=== PATIENT | male | born 1955 | race Caucasian/White ===

== ENCOUNTER → 2017-04-03 | Outpatient (CLI) | payer OTHER ==
[~2017-04-03] MED LIST: PREDNISONE10 MG PO
== END | disposition home or self-care (01) ==
LOC: TOM 13:14
DX: K57.30 Diverticulosis of large intestine without perforation or abscess without bleeding (principal)

== ENCOUNTER 2017-07-21 09:47 | Outpatient (CLI) | payer OTHER | END 2017-07-21 15:06 | disposition home or self-care (01) | LOC: SONOGRAMA 09:47 | DX: R10.9 Unspecified abdominal pain (principal); K57.30 Diverticulosis of large intestine without perforation or abscess without bleeding ==

== ENCOUNTER 2017-09-01 11:58 | Outpatient (CLI) | payer OTHER | END 2017-09-01 17:00 | disposition home or self-care (01) | LOC: MRI 11:58 | DX: M75.42 Impingement syndrome of left shoulder (principal) | CPT/HCPCS: 73221 ==

== ENCOUNTER 2018-02-09 14:14 | Outpatient (CLI) | payer OTHER | END 2018-02-09 14:33 | disposition home or self-care (01) | LOC: MRI 14:14 | DX: D48.1 Neoplasm of uncertain behavior of connective and other soft tissue (principal) | CPT/HCPCS: 73222 ==

== ENCOUNTER 2018-03-30 09:56 | Outpatient (CLI) | payer OTHER | END 2018-03-30 10:10 | disposition home or self-care (01) | LOC: RAD 09:56 | DX: M25.511 Pain in right shoulder (principal); N20.0 Calculus of kidney; N40.1 Benign prostatic hyperplasia with lower urinary tract symptoms | CPT/HCPCS: 73221 ==

== ENCOUNTER 2018-08-04 11:45 | Emergency (ER) | payer OTHER ==
[~2018-08-04] VITALS: Ht 172.7 cm; Wt 83.9 kg
[2018-08-04] MEDS ORDERED: SKELAXIN800 MG PO (15:28)
[2018-08-04] MEDS ORDERED: KETO10TA2 PO (15:28)
== END 2018-08-04 15:54 | disposition home or self-care (01) ==
LOC: ER 11:45
DX: M94.0 Chondrocostal junction syndrome [Tietze] (principal)

== ENCOUNTER 2019-08-15 11:02 | Outpatient (CLI) | payer OTHER ==
[~2019-08-15 11:02] MED LIST changes: +KETO10TA2 PO; +SKELAXIN800 MG PO
== END 2019-08-15 11:09 | disposition home or self-care (01) ==
LOC: TOM 11:02
PROVIDERS: ATTEND Internal Medicine Gastroenterology
DX: K57.30 Diverticulosis of large intestine without perforation or abscess without bleeding (principal); R10.32 Left lower quadrant pain

== ENCOUNTER 2020-11-12 10:39 | Emergency (ER) | payer OTHER ==
[~2020-11-12] VITALS: Ht 172.7 cm; Wt 83.9 kg
[2020-11-12] MEDS ORDERED: PRILOSEC OTC20 MG (10:58)
[2020-11-12] MEDS ORDERED: LEVSIN/SL0.125 MG SL (15:48)
[2020-11-12] MEDS ORDERED: PEPCID20 MG PO (15:48)
[2020-11-12] MEDS ORDERED: CARAFATE1 GM PO (15:48)
== END 2020-11-12 15:58 | disposition home or self-care (01) ==
LOC: ER 10:39
DX: K29.00 Acute gastritis without bleeding (principal); R12 Heartburn; R10.13 Epigastric pain; N28.1 Cyst of kidney, acquired

== ENCOUNTER 2021-04-26 09:26 | Outpatient (CLI) | payer OTHER ==
[~2021-04-26 09:26] MED LIST changes: +CARAFATE1 GM PO; +LEVSIN/SL0.125 MG SL; +PEPCID20 MG PO; +PRILOSEC OTC20 MG
== END 2021-04-29 16:06 | disposition home or self-care (01) ==
LOC: TOM 09:26
PROVIDERS: ATTEND Otolaryngology Plastic Surgery within the Head & Neck
DX: R43.0 Anosmia (principal)

== ENCOUNTER → 2021-07-16 | Outpatient (CLI) | payer OTHER | END | disposition home or self-care (01) | LOC: MRI 10:19 | PROVIDERS: ATTEND Neuromusculoskeletal Medicine, Sports Medicine | DX: M25.562 Pain in left knee (principal); M17.0 Bilateral primary osteoarthritis of knee | CPT/HCPCS: 73721 ==

== ENCOUNTER → 2021-08-23 | Outpatient (CLI) | payer OTHER | END | disposition home or self-care (01) | LOC: TOM 10:07 | PROVIDERS: ATTEND Internal Medicine Gastroenterology | DX: R10.13 Epigastric pain (principal) ==

== ENCOUNTER 2021-09-27 12:51 | Emergency (ER) | payer OTHER ==
[~2021-09-27] VITALS: Ht 172.7 cm; Wt 81.6 kg
[2021-09-27] MEDS ORDERED: MOTRIN IB200 M1 PO (13:27)
[2021-09-27] MEDS ORDERED: NORFLEX100MG PO (16:52)
[2021-09-27] MEDS ORDERED: DICLOFENAC SODI75 MG PO (16:52)
== END 2021-09-27 17:20 | disposition home or self-care (01) ==
LOC: ER 12:51
DX: R10.31 Right lower quadrant pain (principal); K57.30 Diverticulosis of large intestine without perforation or abscess without bleeding; N20.0 Calculus of kidney

== ENCOUNTER 2021-10-14 09:24 | Outpatient (CLI) | payer OTHER ==
[~2021-10-14 09:24] MED LIST changes: +DICLOFENAC SODI75 MG PO; +MOTRIN IB200 M1 PO; +NORFLEX100MG PO
== END 2021-10-14 09:40 | disposition home or self-care (01) ==
LOC: MRI 09:24
DX: M17.0 Bilateral primary osteoarthritis of knee (principal)

== ENCOUNTER → 2021-10-21 | Outpatient (CLI) | payer OTHER | END | disposition home or self-care (01) | LOC: MRI 11:15 | PROVIDERS: ATTEND Radiology Diagnostic Radiology | DX: R10.30 Lower abdominal pain, unspecified (principal) | CPT/HCPCS: 72195 ==

== ENCOUNTER 2022-01-28 06:00 | Day surgery (SDC) | payer OTHER ==
[~2022-01-28] VITALS: Ht 172.7 cm; Wt 81.6 kg
[~2022-01-28 06:00] MED LIST changes: +OMEPRAZOLE-BIC1 EAC1 PO
== END 2022-01-28 15:50 | disposition home or self-care (01) ==
LOC: CIR.AMB 06:00
PROVIDERS: ATTEND Specialist
DX: K40.90 Unilateral inguinal hernia, without obstruction or gangrene, not specified as recurrent (principal); Z20.822 Contact with and (suspected) exposure to COVID-19; Z86.16 Personal history of COVID-19
CPT/HCPCS: 49505; C1781

== ENCOUNTER 2022-07-15 12:36 | Outpatient (CLI) | payer OTHER | END 2022-07-15 15:23 | disposition home or self-care (01) | LOC: SONOGRAMA 12:36 | PROVIDERS: ATTEND Internal Medicine Gastroenterology | DX: K21.9 Gastro-esophageal reflux disease without esophagitis (principal); K30 Functional dyspepsia; Z86.010 Personal history of colon polyps; K57.30 Diverticulosis of large intestine without perforation or abscess without bleeding ==

== ENCOUNTER 2024-06-06 07:34 | Outpatient (CLI) | payer OTHER | END 2024-06-06 07:39 | disposition home or self-care (01) | LOC: TOM 07:34 | PROVIDERS: ATTEND Internal Medicine Gastroenterology | DX: R10.11 Right upper quadrant pain (principal); R10.13 Epigastric pain; B70.0 Diphyllobothriasis ==

== ENCOUNTER 2024-06-07 19:30 | Inpatient (IN) | payer OTHER ==
[~2024-06-07] VITALS: Ht 172.7 cm; Wt 81.6 kg
[2024-06-07] MEDS ORDERED: PIPERACILLIN/TAZOBACTAM SODIUM 3.375 GM VIAL IV ONE ×2 (20:45→20:49)
[2024-06-07] MEDS ORDERED: KETOROLAC TROMETHAMINE 30 MG VIAL IV ONE (20:45)
[2024-06-07] MEDS ORDERED: KETOROLAC TROMETHAMINE 30 MG VIAL ONE (20:49)
[2024-06-07 21:18] LABS: HEMATOCRIT 43.7 % (39.0-48.0); HEMOGLOBIN 14.8 g/dL (13-16.00); MEAN CELL VOLUME 91.3 fL (80.0-100.00); MEAN CORPUSCULAR HEMOGLOBIN 30.8 pg (27.00-32.0); MEAN CORPUSCULAR HGB CONC 33.8 g/dl (32.0-36.0); PLATELET COUNT 288 K/uL (150-450); RED BLOOD COUNT 4.78 M/uL (4.00-6.00)
[2024-06-07 21:38] LABS: INR 1.17; PARTIAL THROMBOPLASTIN TIME 30.5 SECONDS (22.0-34.0); PROTHROMBIN TIME 12.6 SECONDS (9.0-11.5)
[2024-06-07 21:52] LABS: ALBUMIN 3.7 gm/dL (3.4-5.0); BILIRUBIN TOTAL 1.07 mg/dL (0.3-1.2); CREATININE SERUM 1.1 mg/dL (0.70-1.30); GFR 66.37; POTASSIUM 3.68 mEq/L (3.5-5.1); TOTAL PROTEIN 7.7 gm/dL (6.4-8.2)
[2024-06-07] MEDS ORDERED: 0.9 % SODIUM CHLORIDE 1,000 ML IV SCH (23:15)
[2024-06-07] MEDS ORDERED: CIPROFLOXACIN IN 5 % DEXTROSE 200 ML IV SCH (23:18)
[2024-06-07] MEDS ORDERED: ACETAMINOPHEN 500 MG GEL..CAP PO PRN (23:30)
[2024-06-07] MEDS ORDERED: MORPHINE SULFATE 4 MG/ML CARTRIDGE IV SCH (23:30)
[2024-06-07] MEDS ORDERED: HYOSCYAMINE SULFATE 0.125 MG TAB.SUBL PO ONE (23:30)
[2024-06-08] MEDS ORDERED: METRONIDAZOLE/SODIUM CHLORIDE 100 ML IV SCH (01:00)
[2024-06-08] MEDS ORDERED: HYOSCYAMINE SULFATE 0.125 MG TAB.SUBL ONE (03:22)
[2024-06-08] MEDS ORDERED: CIPROFLOXACIN IN 5 % DEXTROSE 400 MG/200 ML PIGGYBAG IV ONE (03:23)
[2024-06-08] MEDS ORDERED: METRONIDAZOLE/SODIUM CHLORIDE 500 MG/100 ML PIGGYBACK IV ONE (03:23)
[2024-06-08 04:14] VITALS: BP 118/70
[2024-06-08 07:39] VITALS: BP 116/66; O2SAT 97
[2024-06-08 08:38] LABS: URINE APPEARANCE Clear; URINE BILIRRUBIN Negative (NEGATIVE); URINE BLOOD Negative; URINE COLOR Dark Yellow; URINE GLUCOSE Negative (NEGATIVE); URINE LEUKOCYTE Negative; URINE NITRATE Negative; URINE PROTEIN Trace (NEGATIVE)
[2024-06-08 08:42] LABS: URINE BACTERIA 8.5 uL (0.0-1933); URINE EPITHELIAL CELLS 3.1 uL (0.0-38.8); URINE RBC 10.1 uL (0.0-20.8); URINE WBC 8.2 uL (0.0-23.2)
[2024-06-08 08:45] LABS: URINE CAST 0.29 uL (0.0-1.40); URINE KETONE 40 (NEGATIVE)
[2024-06-08] MEDS ORDERED: PREDNISONE 5 MG TABLET PO SCH (09:00)
[2024-06-08] MEDS ORDERED: PANTOPRAZOLE SODIUM 40 MG/VIAL VIAL IV SCH (09:00)
[2024-06-08] MEDS ORDERED: PIPERACILLIN/TAZOBACTAM SODIUM 3.375 GM VIAL IV ONE (13:42)
[2024-06-08] MEDS ORDERED: PIPERACILLIN/TAZOBACTAM SODIUM 3.375 GM in 0.9 % SODIUM CHLORIDE 100 ML IV SCH (14:00)
[2024-06-08 16:40] VITALS: BP 116/62; O2SAT 96
[2024-06-08] MEDS ORDERED: CIPROFLOXACIN IN 5 % DEXTROSE 200 ML IV SCH (17:00)
[2024-06-08 23:01] VITALS: BP 133/65
[2024-06-09 02:52] VITALS: BP 130/67; O2SAT 96
[2024-06-09 07:15] LABS: HEMATOCRIT 40.7 % (39.0-48.0); HEMOGLOBIN 13.6 g/dL (13-16.00); MEAN CELL VOLUME 92.2 fL (80.0-100.00); MEAN CORPUSCULAR HEMOGLOBIN 30.9 pg (27.00-32.0); MEAN CORPUSCULAR HGB CONC 33.5 g/dl (32.0-36.0); PLATELET COUNT 304 K/uL (150-450); RED BLOOD COUNT 4.41 M/uL (4.00-6.00); RED CELL DISTRIBUTION WIDTH 13.8 % (11.5-14.5)
[2024-06-09 07:57] LABS: BILIRUBIN TOTAL 0.62 mg/dL (0.3-1.2); CALCIUM 8.9 mg/dL (8.5-10.1); CREATININE SERUM 1.08 mg/dL (0.70-1.30); GFR 67.79; GLOBULINA 3.2 G/DL (2.4-3.5); PHOSPHOROUS 2.6 mg/dL (2.5-4.9); POTASSIUM 4.17 mEq/L (3.5-5.1); TOTAL PROTEIN 6.2 gm/dL (6.4-8.2)
[2024-06-09 08:09] VITALS: BP 113/66; O2SAT 95
[2024-06-09] MEDS ORDERED: PIPERACILLIN/TAZOBACTAM SODIUM 3.375 GM VIAL IV ONE (16:01)
[2024-06-09 17:38] VITALS: BP 120/68; O2SAT 100
[2024-06-10] VITALS: BP 154/86; O2SAT 97
[2024-06-10 10:43] VITALS: BP 119/63; O2SAT 98
[2024-06-10] MEDS ORDERED: CLONAZEPAM 0.5 MG TABLET PO PRN (12:00)
[2024-06-10 17:42] VITALS: BP 120/69
[2024-06-10 18:27] VITALS: BP 120/69
[2024-06-10] MEDS ORDERED: LACTOBACILLUS ACIDOPHILUS 1 CAP CAP PO SCH (21:16)
[2024-06-11 02:01] VITALS: BP 124/60; O2SAT 98
[2024-06-11 08:43] LABS: HEMATOCRIT 44.5 % (39.0-48.0); HEMOGLOBIN 15.1 g/dL (13-16.00); MEAN CELL VOLUME 91.5 fL (80.0-100.00); MEAN CORPUSCULAR HGB CONC 33.8 g/dl (32.0-36.0); PLATELET COUNT 399 K/uL (150-450); RED BLOOD COUNT 4.86 M/uL (4.00-6.00); RED CELL DISTRIBUTION WIDTH 13.6 % (11.5-14.5)
[2024-06-11 09:10] LABS: ALBUMIN 3.3 gm/dL (3.4-5.0); BILIRUBIN TOTAL 0.51 mg/dL (0.3-1.2); CALCIUM 9.3 mg/dL (8.5-10.1); CREATININE SERUM 1.05 mg/dL (0.70-1.30); GFR 70.03; GLOBULINA 3.5 G/DL (2.4-3.5); PHOSPHOROUS 3.2 mg/dL (2.5-4.9); POTASSIUM 4.11 mEq/L (3.5-5.1); TOTAL PROTEIN 6.8 gm/dL (6.4-8.2)
[2024-06-11 09:24] LABS: C-REACTIVE PROTEIN 4.42 MG/DL (0.00-0.29)
[2024-06-11 10:25] VITALS: BP 137/79; O2SAT 100
[2024-06-11 17:03] VITALS: BP 132/70; O2SAT 98
== END 2024-06-11 19:56 | disposition home or self-care (01) | DRG 392 ==
LOC: ER 19:31 → SEC-K 23:21 → MEDJ 06-08 20:43
PROVIDERS: General Practice; Internal Medicine Infectious Disease; ADMIT Internal Medicine; ATTEND Internal Medicine
DX: K52.9 Noninfective gastroenteritis and colitis, unspecified (principal); K57.92 Diverticulitis of intestine, part unspecified, without perforation or abscess without bleeding